=== PATIENT | female | born 1975 | race Two or more races ===

== ENCOUNTER 2023-03-03 16:49 | Emergency (ER) | payer MEDICAID ==
[~2023-03-03] VITALS: Ht 165.1 cm; Wt 63.5 kg
--- NOTE | 2023-03-03 17:00 | NUR ---
RECEIVED PT 47 YRS FEMALE WAKING IN FROM HOME C/O CHEST PAIN ON AND OFF FOR 2 DAYS GOTING WORSE WITH DEEP BREATH AND WALKING ACCOMPANY BY NINO
--- NOTE | 2023-03-03 17:05 | NUR ---
INSERTYED MITUL [place] 20 ON LT AC BLOOD DROW AND SENT TO LAB
--- NOTE | 2023-03-03 17:10 | NUR ---
SEEN BY DR. LA
[2023-03-03 17:27] LABS: BASOPHILS # (AUTO) 0.1 K/uL (0.0-0.2); BASOPHILS % (AUTO) 1.2 % (0.0-2.0); EOSINOPHILS % (AUTO) 3.5 % (0.0-6.0); HEMATOCRIT 42 % (33-45); HEMOGLOBIN 13.8 g/dL (11.5-14.8); LYMPHOCYTES # (AUTO) 3.8 K/uL (0.8-4.8); LYMPHOCYTES % (AUTO) 35.9 % (20.0-44.0); MEAN CORPUSCULAR HGB CONC 33 g/dl (31.0-36.0); MEAN CORPUSCULAR VOLUME 94 fL (82-100); MONOCYTES # (AUTO) 0.8 K/uL (0.1-1.30); NEUTROPHILS # (AUTO) 5.4 K/uL (1.8-8.9); NEUTROPHILS % (AUTO) 51.4 % (43.0-81.0); PLATELET COUNT (AUTO) 268 K/uL (150-450); RED BLOOD CELL COUNT(AUTO) 4.53 MIL/uL (4.0-5.2); WHITE BLOOD COUNT (AUTO) 10.5 K/uL (4.3-11.0)
[2023-03-03 17:38] LABS: CALCIUM, SERUM 8.6 mg/dL (8.5-10.1); CARBON DIOXIDE 23 mmol/L (21-32); CHLORIDE 106 mmol/L (98-107); CREATININE 0.8 mg/dL (0.6-1.3); GLUCOSE 93 mg/dL (74-106); POTASSIUM 3.5 mmol/L (3.5-5.1); SODIUM SERUM 141 mmol/L (136-145); UREA NITROGEN, BLOOD 11 mg/dL (7-18)
[2023-03-03 17:47] LABS: ALANINE AMINOTRANSFERASE 19 U/L (12-78); ALBUMIN 3.8 g/dL (3.4-5.0); ALKALINE PHOSPHATASE 146 U/L (46-116); ASPARTATE AMINOTRANSFERASE 20 U/L (15-37); BILIRUBIN,DIRECT 0.1 mg/dL (0.0-0.2); BILIRUBIN,TOTAL 0.5 mg/dL (0.2-1.0); TOTAL PROTEIN, SERUM 7.3 g/dL (6.4-8.2)
[2023-03-03] MEDS ORDERED: KETOROLAC TROMETHAMINE 15 MG/ML VIAL ONE (18:19)
--- NOTE | 2023-03-03 18:27 | NUR ---
AWAITING DIPOSITION OF PATIENT BY .
[2023-03-03] MEDS ORDERED: KETOROLAC TROMETHAMINE INJ 30 MG/ML VIAL IV ONE (18:30)
--- NOTE | 2023-03-03 18:30 | NUR ---
DINESES CHEST PAIN OR SOB
--- NOTE | 2023-03-03 19:26 | NUR ---
HAND OFF TIFFANIE VELÁSQUEZ
--- NOTE | 2023-03-03 19:40 | NUR ---
Patient with family at bed side per pts request. Discussed plan of care, pt verbalized agreement
--- NOTE | 2023-03-03 19:41 | NUR ---
WAIVER SIGNED AND PLACED IN CHART
--- NOTE | 2023-03-03 19:44 | NUR ---
PT TAKEN TO CT VIA DARIUS
[2023-03-03] MEDS ORDERED: IV NS 0.9% 250 ML IV ONE (19:45)
[2023-03-03] MEDS ORDERED: IOHEXOL-350 100 ML VIAL IV ONE (19:45)
--- NOTE | 2023-03-03 19:58 | NUR ---
PT RETURNED FROM CT
--- NOTE | 2023-03-03 21:13 | NUR ---
Patient discharged to home in stable condition. Written and verbal after care instructions given. Patient verbalizes understanding of instruction.
[2023-03-03 21:14] VITALS: BP 111/75; TEMP 98.1; O2SAT 97
== END 2023-03-03 21:16 | disposition home or self-care (01) ==
LOC: ER 17:01
DX: R07.89 Other chest pain (principal)
CPT/HCPCS: 99285; 96374; 71275; 71045; 93005; 85025; 80048; 80076; 85378; 36415; 84484; 83880; J7050; Q9967; J1885